=== PATIENT | male | born 1960 | race Caucasian/White ===

== ENCOUNTER 2022-07-29 10:03 | Outpatient (CLI) | payer OTHER, SELFPAY ==
--- NOTE | 2022-07-29 10:25 | MR_ITS ---
WS: [id number] MRI LEFT KNEE HISTORY: KNEE PAIN COMPARISON: 07/18/2022 Anterior cruciate ligament: Intact. Posterior cruciate ligament: Intact. Medial collateral ligament: Intact. Posterior lateral corner structures: Intact. Medial menisci: Horizontal tear in the posterior horn. Tear extends to the inferior articular surface . There is additional increased T2 signal along the posterior meniscus which is highly suspicious for meniscocapsular separation. Lateral meniscus: Intact. Normal signal, size and shape. Extensor mechanism: Distal quadriceps tendon and patellar tendons are intact. Fluid and soft tissue: No joint effusion. No Hassan's cyst. Osseous and articular structures: Patellofemoral compartment: Normal. Medial compartment: Mild narrowing of the medial compartment. Small marginal osteophytes. There is a focal cartilage defect along the weightbearing surface of the femoral condyle towards the intercondyl ar notch. This is also the site of fraying and mild blunting of the posterior meniscal horn. Lateral compartment: Mild narrowing of the joint space. Very mild chondromalacia. MR/MR knee LT wo con* [id number] IMPRESSION: 1. Horizontal tear posterior horn medial meniscus. Additional findings suspici ous for meniscocapsular separation. 2. Mild narrowing of the medial and lateral compartments with small marginal osteophytes.
== END 2022-07-29 10:04 | disposition home or self-care (01) ==
PROVIDERS: PCP Family Medicine; Visit Provider Nurse Practitioner Family
DX: S83.242A Other tear of medial meniscus, current injury, left knee, initial encounter (principal); X58.XXXA Exposure to other specified factors, initial encounter
CPT/HCPCS: 73721

== ENCOUNTER → 2023-07-21 14:01 | Outpatient (BNVA) | payer BC, OTHER, SELFPAY | PROVIDERS: PCP Family Medicine; Visit Provider Family Medicine | DX: Z51.81 Encounter for therapeutic drug level monitoring (principal); R35.0 Frequency of micturition; R61 Generalized hyperhidrosis | CPT/HCPCS: 80053; 84153; 85025; 86141 ==